=== PATIENT | male | born 1960 | race Caucasian/White ===

== ENCOUNTER 2020-07-27 10:08 | Observation (INO) ==
[2020-07-27 10:15] VITALS: BMI 21.5
--- NOTE | 2020-07-27 10:25 | DR.GENAD ---
HPI Time Seen Time Seen by Provider: 07/27/20 10:20 PCP Primary Care Physician: BRIGETTE Complaint/Symptoms Chief Complaint:: PT. IS FROM [facility] EMS BRINGS PT. IN WITH C/O CHEST PAIN AND A-FIB WITH RVR. EMS STATE THAT THIS PAST SUNDAY PT. WAS TAKEN OFF OF HIS LISINOPRIL AND HCTZ DUE TO HYPOTENSION. HEART RATE INITIALLY 140-150'S. PT. RECEIVED ONE ASPIRIN AND ONE SL NITROGLYCERIN DESIGN DIRECTOR AT THE SNF. PT. CONVERTED TO A SINUS RHYTHM EN ROUTE. PT. C/O HEADACHE. COVID-19 Coronavirus risk:travel/contact w/high risk person: No Has patient experienced Coronavirus symptoms: No Source History Provided: Patient and EMS Mode of Arrival Mode of Arrival: EMS Timing Onset of Chief Complaint: 07/27/20 PMH PMH Past Medical History: Yes Past Medical History: Hypertension Past Medical History Comment: A-FIB Past Surgical History: Yes Surgical History: Other Family History History of Family Medical Conditions: Yes Family Medical History: Hypertension Social History Does patient currently use any type of tobacco product: No Have you used tobacco products in the last 12 months: No Type of Tobacco Use: None Does any household member use tobacco: No Alcohol Use: None Do you use any recreational Drugs:: No Travel Risk Coronavirus risk:travel/contact w/high risk person: No Has patient experienced Coronavirus symptoms: No Infectious screening In the last 2 months have you had wt loss of >10#?: NO Have you had fever, night sweats or hemotysis?: No Have you traveled outside the country in the last 6 months?: No Isolation: Standard ROS Review of Systems Constitutional: No Symptoms Reported Eyes: No Symptoms Reported ENTM: No Symptoms Reported Respiratoy: Short of Breath (with fast heart rate now resolved) Cardiovascular: See HPI Gastrointestinal/Abdominal: No Symptoms Reported Genitourinary: No Symptoms Reported Neurological: No Symptoms Reported Musculoskeletal: No Symptoms Reported Integumentary: No Symptoms Reported Hematologic/Lymphatic: No Symptoms Reported Endocrine: No Symptoms Reported Psychiatric: No Symptoms Reported All Other Systems: Reviewed and Negative PE Vital Signs Vitals: Temperature 98.3 F Pulse Rate 63 Respiratory Rate 14 Blood Pressure 126/85 O2 Sat by Pulse Oximetry 99 General Limitations: No Limitations General Appearance: Alert and In No Apparent Distress Head Head Exam: Normal Inspection, Atraumatic and Normocephalic Eyes Eye exam: Normal Appearance, PERRL and EOMI; negative Conjunctival Injection and Nystagmus ENT ENT Exam: Normal Exam and Mucous Membranes Moist Mouth Exam: Normal Inspection; negative Drooling, Lip Swelling, Tongue Elevation and Tongue Swelling Throat Exam: Normal Inspection Neck Neck Exam: Normal Inspection, Full ROM and Trachea Midline Chest Chest Inspection: Normal Inspection and Symmetric Chest Wall Rise; negative Tenderness Respiratory Respiratory Exam: Normal Lung Sounds Bilat; negative Accessory Muscle Use and Chest Wall Tenderness Respiratory Exam: Bilateral: Clear to Auscultation Cardiovascular Cardiovascular Exam: Regular Rate, Normal Rhythm and Normal Heart Sounds; negative Bradycardia, Tachycardia and Irregular Rhythm Abdominal Exam Abdominal Exam: Normal Inspection, Normal Bowel Sounds and Soft Extremities Extremities Exam: Normal Inspection and Full ROM; negative Tenderness Back Back Exam: Normal Inspection and Full ROM; negative Tenderness, (R) CVA Tenderness, (L) CVA Tenderness and Vertebral Tenderness Neurologic Neurological Exam: Alert, Oriented X3 and Normal Gait; negative Motor Sensory Deficit Psychiatric Psychiatric Exam: Normal Affect and Normal Mood Skin Skin Exam: Warm, Dry and Intact MDM Differential Diagnosis Differential Diagnosis: a fib new onset Afib with RVR Angina Non STEMI Stemi STV sinus tachycardia COURSE Consultation Called: 11:15 Call Returned: 11:50 Consultation Comments: Dr Watson ROR Labs Reviewed Laboratory Results Reviewed?: Yes Result Diagrams: 07/27/20 10:34 07/27/20 10:34 Laboratory: WBC 6.6 X10^3/uL (3.6-10.0) 07/27/20 10:34 RBC 4.06 X10^6/uL (4.7-6.0) L 07/27/20 10:34 Hgb 12.5 g/dL (13.5-18.0) L 07/27/20 10:34 Hct 37.2 % (42.0-54.0) L 07/27/20 10:34 MCV 91.6 fL (80.0-100.0) 07/27/20 10:34 MCH 30.8 pg (27.0-34.0) 07/27/20 10:34 MCHC 33.7 g/dL (33.0-35.0) 07/27/20 10:34 RDW 13.2 % (11.6-16.5) 07/27/20 10:34 Plt Count 238 X10^3/uL (150.0-450.0) 07/27/20 10:34 MPV 7.4 fL (7.4-11.0) 07/27/20 10:34 Neut % (Auto) 71.0 % (42.0-75.0) 07/27/20 10:34 Lymph % (Auto) 16.9 % (21.0-51.0) L 07/27/20 10:34 Tyrrell % (Auto) 9.8 % (0.0-13.0) 07/27/20 10:34 Eos % (Auto) 1.4 % (0.9-2.9) 07/27/20 10:34 Baso % (Auto) 0.9 % (0.2-1.0) 07/27/20 10:34 Neut # (Auto) 4.7 x10^3/uL (2.2-4.8) 07/27/20 10:34 Lymph # (Auto) 1.1 X10^3/uL (1.3-2.9) L 07/27/20 10:34 Tyrrell # (Auto) 0.6 x10^3/uL (0.3-0.8) 07/27/20 10:34 Eos # (Auto) 0.1 x10^3/uL (0.0-0.2) 07/27/20 10:34 Baso # (Auto) 0.1 X10^3/uL (0.0-0.1) 07/27/20 10:34 Absolute Nucleated RBC 0.0 /100WBC 07/27/20 10:34 PT 13.5 SECONDS (11.8-14.3) 07/27/20 10:34 INR Target Range - 07/27/20 10:34 INR 1.06 (0.8-1.3) 07/27/20 10:34 APTT 32.3 SECONDS (22.9-36.5) 07/27/20 10:34 PTT Comment - 07/27/20 10:34 Sodium 137 mmol/L (136-145) 07/27/20 10:34 Corrected Sodium TNP 07/27/20 10:34 Potassium 4.0 mmol/L (3.5-5.1) 07/27/20 10:34 Chloride 104 mmol/L (98-107) 07/27/20 10:34 Carbon Dioxide 27.3 mmol/L (21-32) 07/27/20 10:34 BUN 18 mg/dL (7-18) 07/27/20 10:34 Creatinine 0.99 mg/dL (0.70-1.30) 07/27/20 10:34 Est GFR (MDRD) Af Amer > 60 (>60) 07/27/20 10:34 Est GFR (MDRD) Non-Af > 60 (>60) 07/27/20 10:34 Glucose 102 mg/dL (65-99) H 07/27/20 10:34 Calcium 8.8 mg/dL (8.5-10.1) 07/27/20 10:34 Corrected Calcium TNP 07/27/20 10:34 Magnesium 2.1 mg/dL (1.7-2.9) 07/27/20 10:34 Total Bilirubin 0.30 mg/dL (0.2-1.0) 07/27/20 10:34 AST 12 Units/L (15-37) L 07/27/20 10:34 ALT 14 Units/L (12-78) 07/27/20 10:34 Alkaline Phosphatase 62 Units/L (46-116) 07/27/20 10:34 Creatine Kinase 73 Units/L (39-308) 07/27/20 10:34 CK-MB (CK-2) 1.0 ng/mL (0-4.0) 07/27/20 10:34 CK/CKMB % Calc 1.4 % (<4) 07/27/20 10:34 Troponin I < 0.02 ng/mL (0-1.5) 07/27/20 10:34 Total Protein 7.2 g/dL (6.4-8.2) 07/27/20 10:34 Albumin 3.4 g/dL (3.4-5.0) 07/27/20 10:34 Globulin 3.8 g/dL (2.5-4.5) 07/27/20 10:34 Albumin/Globulin Ratio 0.9 Ratio (1.1-2.1) L 07/27/20 10:34 EKG Rate: 65 [place]: Normal Rhythm: NSR Block: None Hypertrophy: None ST: Normal and Nonsp (inverted T waves III AcvF V1 V2) Opioid Opioid Risk Tool Age (Victor Manuel box if 16-45): No History of Preadolescent Sexual Abuse: No Total: 0 Total Score Risk Category: Low Risk Copyright: [employer] predicting aberrant behaviors Diagnosis Discharge Problem: Abnormal ECG Chest pain Qualifiers: Chest pain type: precordial pain Qualified Code(s): R07.2 - Precordial pain
--- NOTE | 2020-07-27 10:40 | RAD ---
HISTORYCHEST PAINSTUDYCHEST, 1 VIEWCOMPARISONNoneTECHNIQUEAP view of the chestFINDINGSCardiac and mediastinal contours appear normal. The lungs are hyperexpanded with blunting of the costophrenic sulci. No consolidation or segmental collapse. No pneumothorax.IMPRESSIONEmphysema with bibasilar scarring.Electronically signed by: Elian Charles (Jul 27, 2020 10:39:32)
[2020-07-27 10:49] LABS: BASOPHILS # (AUTO) 0.1 X10^3/uL (0.0-0.1); BASOPHILS % (AUTO) 0.9 % (0.2-1.0); EOSINOPHILS # (AUTO) 0.1 x10^3/uL (0.0-0.2); EOSINOPHILS % (AUTO) 1.4 % (0.9-2.9); HEMATOCRIT 37.2 % (42.0-54.0); HEMOGLOBIN 12.5 g/dL (13.5-18.0); LYMPHOCYTES # (AUTO) 1.1 X10^3/uL (1.3-2.9); LYMPHOCYTES % (AUTO) 16.9 % (21.0-51.0); MEAN CORPUSCULAR HEMOGLOBIN 30.8 pg (27.0-34.0); MEAN CORPUSCULAR HGB CONC 33.7 g/dL (33.0-35.0); MEAN CORPUSCULAR VOLUME 91.6 fL (80.0-100.0); MEAN PLATELET VOLUME 7.4 fL (7.4-11.0); MONOCYTES # (AUTO) 0.6 x10^3/uL (0.3-0.8); MONOCYTES % (AUTO) 9.8 % (0.0-13.0); NEUTROPHILS # (AUTO) 4.7 x10^3/uL (2.2-4.8); PLATELET COUNT 238 X10^3/uL (150.0-450.0); RED BLOOD COUNT 4.06 X10^6/uL (4.7-6.0); RED CELL DISTRIBUTION WIDTH 13.2 % (11.6-16.5); WHITE BLOOD COUNT 6.6 X10^3/uL (3.6-10.0)
[2020-07-27 10:57] LABS: BLOOD UREA NITROGEN 18 mg/dL (7-18); CALCIUM 8.8 mg/dL (8.5-10.1); CARBON DIOXIDE 27.3 mmol/L (21-32); CHLORIDE 104 mmol/L (98-107); CREATININE 0.99 mg/dL (0.70-1.30); SODIUM 137 mmol/L (136-145); TROPONIN I < 0.02 ng/mL (0-1.5); eGFR NON BLACK RACES > 60 (>60)
[2020-07-27 11:01] LABS: ALANINE AMINOTRANSFERASE 14 Units/L (12-78); ALBUMIN 3.4 g/dL (3.4-5.0); ALKALINE PHOSPHATASE 62 Units/L (46-116); ASPARTATE AMINO TRANSFERASE 12 Units/L (15-37); CKMB % 1.4 % (<4); CREATINE KINASE 73 Units/L (39-308); MAGNESIUM 2.1 mg/dL (1.7-2.9); TOTAL PROTEIN 7.2 g/dL (6.4-8.2)
[2020-07-27] MEDS ORDERED: TYLENOL 325 MG TAB PO ONE (12:53)
[2020-07-27] MEDS: TYLENOL 325 MG TAB PO PRN ×2 (12:56→19:04)
[2020-07-27] MEDS ORDERED: VISTARIL PO PRN (20:16)
[2020-07-27] MEDS ORDERED: VISTARIL PO ONE (20:20)
[2020-07-28] MEDS ORDERED: NITROSTAT SL PRN (01:01)
[2020-07-28] MEDS ORDERED: ULTRAM PO PRN (01:06)
[2020-07-28] MEDS ORDERED: ULTRAM ONE (01:08)
[2020-07-28 01:49] LABS: CKMB % 1.6 % (<4); CREATINE KINASE 61 Units/L (39-308); CREATINE KINASE MB < 1.0 ng/mL (0-4.0); TROPONIN I < 0.02 ng/mL (0-1.5)
[2020-07-28 06:07] LABS: BASOPHILS # (AUTO) 0.1 X10^3/uL (0.0-0.1); BASOPHILS % (AUTO) 1.3 % (0.2-1.0); EOSINOPHILS # (AUTO) 0.2 x10^3/uL (0.0-0.2); EOSINOPHILS % (AUTO) 2.7 % (0.9-2.9); HEMATOCRIT 38.6 % (42.0-54.0); HEMOGLOBIN 12.8 g/dL (13.5-18.0); LYMPHOCYTES % (AUTO) 31.8 % (21.0-51.0); MEAN CORPUSCULAR HGB CONC 33.3 g/dL (33.0-35.0); MEAN CORPUSCULAR VOLUME 93.2 fL (80.0-100.0); MEAN PLATELET VOLUME 7.4 fL (7.4-11.0); MONOCYTES # (AUTO) 0.7 x10^3/uL (0.3-0.8); NEUTROPHILS # (AUTO) 3.4 x10^3/uL (2.2-4.8); NEUTROPHILS % (AUTO) 53.2 % (42.0-75.0); PLATELET COUNT 237 X10^3/uL (150.0-450.0); RED BLOOD COUNT 4.14 X10^6/uL (4.7-6.0); WHITE BLOOD COUNT 6.4 X10^3/uL (3.6-10.0)
[2020-07-28] MEDS: TYLENOL 325 MG TAB PO PRN (06:13)
[2020-07-28 06:28] LABS: ALANINE AMINOTRANSFERASE 14 Units/L (12-78); ALBUMIN 3.4 g/dL (3.4-5.0); ALKALINE PHOSPHATASE 72 Units/L (46-116); ASPARTATE AMINO TRANSFERASE 13 Units/L (15-37); BLOOD UREA NITROGEN 16 mg/dL (7-18); CALCIUM 8.7 mg/dL (8.5-10.1); CARBON DIOXIDE 26.8 mmol/L (21-32); CHLORIDE 104 mmol/L (98-107); CHOL/HDL RATIO 3.1 (0.0-5.0); CHOLESTEROL 174 mg/dL (0-200); COR NA(FOR HYPERGLY) 138 mmol/L (136-145); CREATININE 1.15 mg/dL (0.70-1.30); HDL CHOLESTEROL 57 mg/dL (40-60); SODIUM 138 mmol/L (136-145); TOTAL PROTEIN 7.1 g/dL (6.4-8.2); TRIGLYCERIDES 89 mg/dL (0-150); eGFR NON BLACK RACES > 60 (>60)
[2020-07-28 06:40] LABS: CKMB % 1.5 % (<4); CREATINE KINASE 66 Units/L (39-308); CREATINE KINASE MB < 1.0 ng/mL (0-4.0); TROPONIN I < 0.02 ng/mL (0-1.5)
[2020-07-28] MEDS ORDERED: LOVENOX INJ 40 MG SYR SC SCH (09:00)
--- NOTE | 2020-07-28 10:18 | DR.CARTERS ---
Short Stay Summary - Admission Date Date of Admission: 07/27/20 - Discharge Date Discharge Date: 07/28/20 - Admission Diagnoses (1) Chest pain Status: Acute (2) Atrial fibrillation Status: Acute (3) Abnormal ECG Status: Acute - Hospital Course Hospital Course: PATIENT IS A 59 YEAR OLD MALE. 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 HE WAS TRANSPORTED TO THE ER VIA EMS DUE TO COMPLAINTS OF CHEST PAIN AND ATRIAL FIBRILLATION WITH RVR. EMS REPORTED THAT HE WAS TAKEN OFF OF HIS LISINOPRIL AND HCTZ LAST WEEK DUE TO HYPOTENSION. EMS REPORTED THAT HEART RATE WAS INITIALLY 140s-150s. HE RECEIVED ON ASPIRIN AND ONE SUBLINGUAL NITROGLYCERIN PRIOR TO ARRIVAL AT THE [facility]. HE CONVERTED TO NORMAL SINUS RHYTHM EN ROUTE TO THE ER. HE CONTINUED TO REPORT INTERMITTENT CHEST PAIN AND HEADACHE WHEN HE ARRIVED TO THE ER. PAIN IS DESCRIBED DULL, INTERMITTENT, AND IS RATED 5/10. PMH INCLUDES HTN AND ATRIAL FIBRILLATION. ON ARRIVAL, VITALS WERE 98.3-68-25-98%-168/102. LABS WERE OBTAINED. ABNORMAL LAB VALUES INCLUDED THE FOLLOWING: RBC 4.06, HGB 12.5, HCT 37.2, GLUCOSE 102, AST 12. CARDIAC ENZYMES WERE WITHIN NORMAL LIMITS. A CHEST XRAY WAS OBTAINED AND REVEALED: EMPHYSEMA WITH BIBASILAR SCARRING. EKG REVEALED: SINUS RHYTHM WITH HR 65. PATIENT WAS ADMITTED TO THE HOSPITAL FOR FURTHER EVALUATION AND TREATMENT OF CHEST PAIN AND EKG CHANGES. HE WAS STARTED ON LOVENOX 40MG SC DAILY, NITROSTAT 0.4MG SL Q5M PRN, ULTRAM 50MG Q4H PRN. WE PLANNED TO OBTAIN SERIAL CARDIAC ENZYMES AND CONTINUE TO MONITOR. ON THE MORNING FOLLOWING ADMISSION, PATIENT IS ALERT AND ORIENTED, SITTING UP IN BED ON MORNING ROUNDS. HE DENIES CHEST PAIN, HEADACHE, OR OTHER COMPLAINTS. STAFF DOES REPORT THAT AT APPROXIMATELY 05:20 THIS MORNING, EKG REPORTED ATRIAL FLUTTER. PATIENT WAS ASYMPTOMATIC. HIS VITALS THIS MORNING ARE: 97.8-72-20-96%NC-128/83. LABS WERE OBTAINED. ABNORMAL LAB VALUES INCLUDE THE FOLLOWING: RBC 4.14, HGB 12.8, HCT 38.6, GLUCOSE 115, AST 13. CARDIAC ENZYMES HAVE BEEN WITHIN NORMAL LIMITS. WE PLANNED FOR DISCHARGE. IT WAS DISCUSSED WITH PATIENT AND GUARDS THAT HE WILL REQUIRE A FURTHER CARDIAC WORK-UP, OUTPATIENT. THEY VERBALIZED UNDERSTANDING. HE WAS GIVEN NEW PRESCRIPTIONS FOR ROSUVASTATIN 10MG PO DAILY, METOPROLOL 12.5MG PO BID, AND ECOTRIN 325MG PO DAILY. A FOLLOW-UP VISIT WITH /, TOOL MAKER BENCH WILL BED SET UP. PATIENT WAS DISCHARGED BACK TO [facility] IN STABLE, IMPROVED CONDITION. - Discharge Medications Discharge Medications: Home Medication List NK 07/27/20 [History] aspirin [Ecotrin] 325 mg PO QDAY #90 tab 07/28/20 [Rx] metoprolol tartrate 12.5 mg PO BID #30 tab 07/28/20 [Rx] rosuvastatin 10 mg PO HS #30 tab 07/28/20 [Rx] Prescriptions: aspirin [Ecotrin] Edwin Watson metoprolol tartrate Edwin Watson rosuvastatin Edwin Watson - Discharge Plan Disposition: HOME, SELF-CARE Condition: Stable Prescriptions: aspirin [Ecotrin] 325 mg PO QDAY #90 tab metoprolol tartrate 12.5 mg PO BID #30 tab rosuvastatin 10 mg PO HS #30 tab - Follow up/Referrals Follow up/Referrals: KING ROME [STAFF PHYSICIAN] - 1 WEEK NFD,Jason [Primary Care Provider] - 3 days - Instructions Additional Instructions: DIET TOLERATED. ACTIVITY TOLERATED. CARDIAC FOLLOW-UP WITH /LORY Forms: Excuse From Work or School, Precautions for COVID19, Patient Portal, Social Distancing
[2020-07-28] MEDS ORDERED: LOPRESSOR TAB 25 MG ONE (12:09)
[2020-07-28] MEDS ORDERED: LOPRESSOR TAB 25 MG PO ONE (12:11)
[2020-07-28 14:50] VITALS: BP 150/96
== END 2020-07-28 13:30 | disposition home or self-care (01) ==
LOC: ER 10:08 → MED/SURG 10:08
PROVIDERS: ADMIT Internal Medicine; ATTEND Internal Medicine
DX: Z20.828 Contact with and (suspected) exposure to other viral communicable diseases; R51 Headache; I48.91 Unspecified atrial fibrillation; R07.2 Precordial pain; R94.31 Abnormal electrocardiogram [ECG] [EKG]